=== PATIENT | female | born 1945 | race Caucasian/White ===

== ENCOUNTER 2016-11-07 03:24 | Emergency (ER) | payer MEDICARE, BC ==
[2016-11-07 03:45] VITALS: BP 169/72
[2016-11-07] MEDS ORDERED: Sodium Chloride 0.9% 10 ML Syringe FLUSH PRN (04:18)
[2016-11-07] MEDS ORDERED: HYDROmorphone 1 MG/ML Syringe IVPUSH ONE (04:18)
[2016-11-07] MEDS ORDERED: Ketorolac 30 MG/ML SDV IVPUSH ONE (04:18)
[2016-11-07] MEDS ORDERED: Ondansetron 4 MG/2 ML SDV IVPUSH ONE (04:19)
--- NOTE | 2016-11-07 06:03 | EDM.PDOC ---
ED HPI GENERAL MEDICAL PROBLEM - General Chief Complaint: Genitourinary Problem Stated Complaint: RT BACK PAIN Time Seen by Provider: 11/07/16 04:14 Source of Information: Reports: Patient History Limitations: Reports: No Limitations - History of Present Illness INITIAL COMMENTS - FREE TEXT/NARRATIVE: This lady comes in complaining of right flank pain which is been going on for the past one or 2 hours. She did have an episode a couple of days ago when she had some vague right flank pain but then that went away. She also noticed some dark urine at about the same time and is noticed a little bit of burning on urination. She's never had a kidney stone before. She denies any fever. right lower back Pain Score (Numeric/FACES): 8 - Related Data Allergies Allergy/AdvReac Type Severity Reaction Status Date / Time codeine Allergy Excitabilit Verified 11/07/16 04:09 y Home Meds: Home Meds Aspirin [Radha Chewable] 81 mg PO DAILY 11/07/16 [History] Escitalopram Oxalate [Lexapro] 5 mg PO DAILY 11/07/16 [History] Esomeprazole [NexIUM] 20 mg PO DAILY 11/07/16 [History] MV,Ca,Min/Iron Fum/FA/Vit K [Multi For Her Tablet] 1 tab PO DAILY 11/07/16 [ History] [place]-3 Fatty Acids [Fish Oil] 300 mg PO BID 11/07/16 [History] Rosuvastatin [Crestor] 10 mg PO DAILY 11/07/16 [History] Telmisartan/Amlodipine [Twynsta 40-5 MG] 1 tab PO DAILY 11/07/16 [History] levETIRAcetam [Keppra Xr] 750 mg PO BID 11/07/16 [History] metFORMIN [Glucophage] 500 mg PO DAILY 11/07/16 [History] Past Medical History Cardiovascular History: Reports: Hypertension Gastrointestinal History: Reports: GERD, Hemorrhoids [employer] History: Reports: Ectopic , Musculoskeletal History: Reports: Arthritis, Osteoarthritis Neurological History: Reports: Head Trauma, Seizure Psychiatric History: Reports: Anxiety Endocrine/Metabolic History: Reports: Diabetes, Type II - Infectious Disease History Infectious Disease History: Reports: Chicken Pox, Measles - Past Surgical History HEENT Surgical History: Reports: Cataract Surgery GI Surgical History: Reports: Cholecystectomy Female Surgical History: Reports: D&C, Hysterectomy Social & Family History - Tobacco Use Smoking Status *Q: Never Smoker - Caffeine Use Caffeine Use: Reports: Coffee - Recreational Drug Use Recreational Drug Use: No - Living Situation & Occupation Living situation: Reports: Other (this patient is here with her . They live in the state of [place] and are traveling through our area for the next week.) ED ROS GENERAL - Review of Systems Review Of Systems: ROS reveals no pertinent complaints other than HPI. ED EXAM, RENAL/ - Physical Exam Exam: See Below Exam Limited By: No Limitations General Appearance: Alert, WD/WN, Mild Distress Eye Exam: Bilateral Eye: Normal Inspection Respiratory/Chest: Lungs Clear Cardiovascular: Regular Rate, Rhythm Back Exam: CVA Tenderness (R) (This exam was done after she was medicated and was completely pain free). No: CVA Tenderness (L) Psychiatric: Normal Affect Skin Exam: Warm, Dry Course - Vital Signs Last Recorded V/S: Last Vital Signs Temp 36.1 C 11/07/16 03:44 Pulse 62 11/07/16 03:44 Resp 18 11/07/16 03:44 BP 169/72 H 11/07/16 03:44 Pulse Ox 97 11/07/16 03:44 - Orders/Labs/Meds Orders: Active Orders 24 hr Category Date Time Status Kidney Stone Protocol [CT] Stat Exams 11/07/16 04:19 Taken Sodium Chloride 0.9% [Saline Flush] Med 11/07/16 04:18 Active 10 ml FLUSH ASDIRECTED PRN Saline Lock Insert [OM.PC] Urgent Oth 11/07/16 04:18 Ordered Medication Orders Sodium Chloride (Saline Flush) 10 ml FLUSH ASDIRECTED PRN PRN Reason: Keep Vein Open Last Admin: 11/07/16 04:33 Dose: 10 ml Labs: Laboratory Tests 11/07/16 11/07/16 11/07/16 Range/Units 04:18 04:18 04:35 WBC 7.6 (4.5-11.0) K/uL RBC 3.71 (3.30-5.50) M/uL Hgb 11.9 L (12.0-15.0) g/dL Hct 35.6 L (36.0-48.0) % MCV 96 (80-98) fL MCH 32 H (27-31) pg MCHC 33 (32-36) % Plt Count 157 (150-400) K/uL Neut % (Auto) 59 (36-66) % Lymph % (Auto) 32 (24-44) % [place] % (Auto) 6 (2-6) % Eos % (Auto) 2 (2-4) % Baso % (Auto) 0 (0-1) % Sodium 143 (140-148) mmol/L Potassium 3.6 (3.6-5.2) mmol/L Chloride 104 (100-108) mmol/L Carbon Dioxide 26 (21-32) mmol/L Anion Gap 13.4 (5.0-14.0) mmol/L BUN 19 H (7-18) mg/dL Creatinine 1.0 (0.6-1.0) mg/dL Est Cr Clr Drug Dosing 48.30 mL/min Estimated GFR (MDRD) 55 L (>60) Glucose 178 H (74-106) mg/dL Calcium 9.2 (8.5-10.1) mg/dL Urine Color Yellow Urine Appearance Clear Urine pH 5.0 (4.5-8.0) Ur Specific [place] 1.020 (1.008-1.030) Urine Protein Negative (NEGATIVE) mg/dL Urine Glucose (UA) Normal (NEGATIVE) mg/dL Urine Ketones Negative (NEGATIVE) mg/dL Urine Occult Blood Moderate (NEGATIVE) Urine Nitrite Negative (NEGATIVE) Urine Bilirubin Negative (NEGATIVE) Urine Urobilinogen Normal (NORMAL) mg/dL Ur Leukocyte Esterase Negative (NEGATIVE) Urine RBC 0-5 (0-5) Urine WBC 0-5 (0-5) Ur Epithelial Cells Few Amorphous Sediment Not seen Urine Bacteria Few Urine Mucus Not seen Meds: Medications Generic Name Dose Route Start Last Admin Trade Name Freq PRN Reason Stop Dose Admin Sodium Chloride 10 ml 11/07/16 04:18 11/07/16 04:33 Saline Flush FLUSH 10 ml ASDIRECTED PRN Administration Keep Vein Open Discontinued Medications Generic Name Dose Route Start Last Admin Trade Name Freq PRN Reason Stop Dose Admin Hydromorphone HCl 1 mg 11/07/16 04:18 11/07/16 04:30 Dilaudid IVPUSH 11/07/16 04:19 1 mg ONETIME ONE Administration Ketorolac Tromethamine 30 mg 11/07/16 04:18 11/07/16 04:28 Toradol IVPUSH 11/07/16 04:19 30 mg ONETIME ONE Administration Ondansetron HCl 4 mg 11/07/16 04:19 11/07/16 04:27 Zofran IVPUSH 11/07/16 04:20 4 mg ONETIME ONE Administration - Radiology Interpretation Free Text/Narrative:: CT scan shows a 8 mm nonobstructing stone in the pelvis of the right kidney. I examined the CT myself and the pelvis looks like it is distended so I think it was previously obstructed but the stone probably has fallen free due to the effects of medication. There is a 3.6 cm cystic lesion of the left ovary. Ultrasound is recommended. - Re-Assessments/Exams Free Text/Narrative Re-Assessment/Exam: 11/07/16 06:06 An IV was established. She was given Dilaudid 1 mg and Toradol 30 mg IV. This gave complete pain relief. CT findings were discussed with the patient including the 8 mm stone as well as the ovarian cyst and recommendation for ultrasound. Other notable labs were mild anemia and there some mild renal insufficiency. Departure - Departure Time of Disposition: 06:08 Disposition: Home, Self-Care 01 Condition: Fair Clinical Impression: Kidney stone, Ovarian cyst - Discharge Information Forms: ED Department Discharge Additional Instructions: There is an 8 mm nonobstructing stone in the pelvis of the right kidney. The CT appears to indicate that the stone probably was obstructing the outlet from the kidney but that obstruction was most likely relieved by the effective medication. If the stone moves just a little bit it will probably obstruct this area again causing more pain. The stone is big enough that it's unlikely You will be able to pass it.You'll need to see a urologist in the near future. For pain take Percocet 5/325 (#20 ) one or 2 tablets every 4 hours as needed. This medication can cause sedation and impair driving. There is also a prescription for Flomax 0.4 mg once daily. Many people think this will help the stone to pass. There is also a 3.6 cm cyst in your left ovary and it's recommended that you have an ultrasound to evaluate this further. Most likely it's just a simple ovarian cyst however ovarian cancer might look like this in its early stages so don't neglect this. - My Orders Last 24 Hours: My Active Orders 11/07/16 04:18 Sodium Chloride 0.9% [Saline Flush] 10 ml FLUSH ASDIRECTED PRN Saline Lock Insert [OM.PC] Urgent 11/07/16 04:19 Kidney Stone Protocol [CT] Stat - Assessment/Plan Last 24 Hours: My Active Orders 11/07/16 04:18 Sodium Chloride 0.9% [Saline Flush] 10 ml FLUSH ASDIRECTED PRN Saline Lock Insert [OM.PC] Urgent 11/07/16 04:19 Kidney Stone Protocol [CT] Stat
== END 2016-11-07 06:18 | disposition home or self-care (01) ==
LOC: JP.ED 03:24
DX: N20.0 Calculus of kidney (principal); N83.202 Unspecified ovarian cyst, left side; E11.9 Type 2 diabetes mellitus without complications; I10 Essential (primary) hypertension; K21.9 Gastro-esophageal reflux disease without esophagitis; M19.90 Unspecified osteoarthritis, unspecified site; Z90.49 Acquired absence of other specified parts of digestive tract; Z90.710 Acquired absence of both cervix and uterus; Z79.84 Long term (current) use of oral hypoglycemic drugs; Z79.82 Long term (current) use of aspirin; Z79.899 Other long term (current) drug therapy; Z88.5 Allergy status to narcotic agent
CPT/HCPCS: 36415; 74176; 80048; 81001; 85025; 96374; 96375; 99284; J1170; J1885; J2405; J7050